=== PATIENT | female | born 1960 ===

== ENCOUNTER 2017-08-24 14:44 | Emergency (ER) | payer BC ==
[2017-08-24 15:32] VITALS: BP 108/86
--- NOTE | 2017-08-24 16:29 | UC ---
Ear Complaint HPI - HPI Summary HPI Summary: 57 year old female with ear pain. Right ear pain, sore throat, "terrible ... dry " cough, "wheezing", myalgias, and difficulty sleeping for five days. Worsening cough at this time. [ End ] - History of Current Complaint Chief Complaint: UCRespiratory Stated Complaint: COUGH,SORE THROAT,EAR PAIN Time Seen by Provider: 08/24/17 16:26 Hx Obtained From: Patient ?: No Onset/Duration: Gradual Onset Associated Signs/Symptoms: Negative: Discharge - Allergies/Home Medications Allergies/Adverse Reactions: Allergies Allergy/AdvReac Type Severity Reaction Status Date / Time No Known Allergies Allergy Verified 08/24/17 15:21 Home Medications: Home Medications Aspirin Low Dose CHEW TAB* [Aspirin Low Dose TAB*] 81 mg PO DAILY 08/24/17 [ History Confirmed 08/24/17] Atenolol TAB* [Tenormin TAB* 25 MG] mg PO DAILY 08/24/17 [History] Benazepril (NF) [Lotensin (NF)] mg PO DAILY 08/24/17 [History] Insulin GLARGINE(*) [Lantus(*)] 12 units SUBCUT QPM 08/24/17 [History Confirmed 08/24/17] Pioglitazone TAB* [Actos TAB*] 45 mg PO DAILY 08/24/17 [History Confirmed ] amLODIPine TAB* [Norvasc 5 mg TAB*] mg PO DAILY 08/24/17 [History] glipiZIDE TAB* [Glucotrol TAB*] 20 mg PO BID 08/24/17 [History Confirmed ] metFORMIN* [Glucophage 1000 MG TAB *] 1,000 mg PO BID 08/24/17 [History Confirmed 08/24/17] PMH/Surg Hx/FS Hx/Imm Hx Previously Healthy: Yes Endocrine History: Diabetes, Dyslipidemia Cardiovascular History: Hypertension - Surgical History Surgical History: Yes Surgery Procedure, Year, and Place: Hysterectomy, Cholecystectomy, x 4 - Family History Known Family History: Positive: Diabetes - Social History Occupation: Employed Full-time Lives: With Family Alcohol Use: None Substance Use Type: None Smoking Status (MU): Never Smoked Tobacco - Immunization History Most Recent Influenza Vaccination: July 2017 Review of Systems Constitutional: Fever, Chills, Fatigue ENT: Sore Throat, Ear Ache, Nasal Discharge, Sinus Congestion, Sinus Pain/ Tenderness Respiratory: Cough Is Patient Immunocompromised?: No All Other Systems Reviewed And Are Negative: Yes Physical Exam Triage Information Reviewed: Yes Appearance: Well-Appearing, No Pain Distress, Well-Nourished Vital Signs: Initial Vital Signs Temp 98.2 F 08/24/17 15:19 Pulse 72 08/24/17 15:19 Resp 18 08/24/17 15:19 BP 108/86 08/24/17 15:19 Pulse Ox 100 08/24/17 15:19 Vital Signs Reviewed: Yes Eye Exam: Normal ENT Exam: Normal ENT: Positive: Nasal congestion, Other: - frontal sinus tenderness to palpation Dental Exam: Normal Neck exam: Normal Neck: Positive: 1 Respiratory Exam: Normal Cardiovascular Exam: Normal Musculoskeletal Exam: Normal Neurological Exam: Normal Psychological Exam: Normal Skin Exam: Normal Ear Complaint Course/Dx - Course Course Of Treatment: Appears viral at this time. Pt adamant about Abx -- I discussed how very low odds of bacterial infection but she is concerned about her DM-2 and complications of no abx -- she is aware of all SE of augmentin and will start them if her Sx do not improve - Differential Dx/Diagnosis Differential Diagnosis/HQI/PQRI: Otitis Externa, Otitis Media, URI Provider Diagnoses: URI Discharge - Discharge Plan Condition: Good Disposition: HOME Prescriptions: Amoxicillin/Clavulanate TAB* [Augmentin TAB 875*] 875 mg PO BID #14 tab Benzonatate CAP* [Tessalon 100 MG CAP*] 100 mg PO TID #20 cap Patient Education Materials: Upper Respiratory Infection (ED) Referrals: No Primary Care Phys,NOPCP [Primary Care Provider] - 4 Days Additional Instructions: WE DISCUSSED YOU APPEAR TO HAVE A VIRAL INFECTION AND ANTIBIOTICS WILL NOT HELP. IF YOUR SYMPTOMS PERSIST OR WORSEN OVER THE NEXT 4-5 DAYS THEN YOU MAY START THE ANTIBIOTIC.
== END 2017-08-24 16:50 | disposition home or self-care (01) ==
LOC: UCCORT 14:44
DX: J06.9 Acute upper respiratory infection, unspecified (principal); H92.01 Otalgia, right ear; E11.9 Type 2 diabetes mellitus without complications; I10 Essential (primary) hypertension; Z79.4 Long term (current) use of insulin
CPT/HCPCS: 99212; G0463